=== PATIENT | female | born 1970 | race Caucasian/White ===

== ENCOUNTER 2016-08-24 11:31 | Emergency (ER) | payer MEDICAID ==
[~2016-08-24] VITALS: Ht 157.5 cm; Wt 68.4 kg
[2016-08-24 11:36] VITALS: BP 128/82
== END 2016-08-24 13:30 | disposition home or self-care (01) ==
LOC: ED 13:15
DX: J20.8 Acute bronchitis due to other specified organisms (principal); Z90.49 Acquired absence of other specified parts of digestive tract; Z98.51 Tubal ligation status
CPT/HCPCS: 71020; 99284

== ENCOUNTER 2018-06-25 19:06 | Emergency (ER) | payer MEDICAID ==
[~2018-06-25] VITALS: Ht 157.5 cm; Wt 71.2 kg
[2018-06-25 19:18] VITALS: BP 130/72
== END 2018-06-25 20:50 | disposition home or self-care (01) ==
LOC: ED 19:42
DX: J20.8 Acute bronchitis due to other specified organisms (principal)
CPT/HCPCS: 71046; 99283